=== PATIENT | female | born 1995 | race American Indian/Alaskan Native ===

== ENCOUNTER 2017-12-04 17:33 | Emergency (ER) | payer SELFPAY ==
[2017-12-04 20:06] LABS: Basophils % (Auto) 0.4 % (0.0-1.8); Eosinophils # (Auto) 0.2 K/mm3 (0.0-0.4); Eosinophils % (Auto) 1.7 % (0.0-4.3); Hematocrit 36.8 % (30.3-42.9); Hemoglobin 12.2 gm/dl (10.1-14.3); Lymphocytes # (Auto) 3.8 K/mm3 (1.2-5.4); Lymphocytes % (Auto) 28.9 % (13.4-35.0); Mean Corpuscular HGB Conc 33 % (30-34); Mean Corpuscular Hemoglobin 29 pg (28-32); Mean Corpuscular Volume 88 fl (79-97); Monocytes % (Auto) 7.8 % (0.0-7.3); Platelet Count 242 K/mm3 (140-440); Red Cell Distribution Width 15.9 % (13.2-15.2)
[2017-12-04 20:21] LABS: Alanine Aminotransferase 10 units/L (7-56); Albumin 4.1 g/dL (3.9-5); BUN/Creatinine Ratio 17; Blood Urea Nitrogen 10 mg/dL (7-17); Hemolysis Index 6
[2017-12-04 20:35] LABS: Bacteria,Urine 1+ /HPF (Negative); Bilirubin,Urine NEG (Negative); Blood,Urine LG (Negative); Color,Urine Yellow (Yellow); Mucus,Urine 3+ /HPF; Nitrite,Urine NEG (Negative); Protein,Urine <15 mg/dL mg/dL (Negative)
[2017-12-04 20:37] LABS: RBC,Urine > 182.0 /HPF (0.0-6.0)
[2017-12-04 20:38] LABS: HCG Qualitative,Urine Negative (Negative)
[2017-12-04] MEDS ORDERED: MOTRIN PO ONE (23:43)
[2017-12-04] MEDS ORDERED: NORCO 5/325 PO ONE (23:43)
--- NOTE | 2017-12-04 23:50 | Emergency Department Report ---
ED Back Pain/Injury HPI - General Chief Complaint: Abdominal Pain Stated Complaint: RIGHT SIDE PAIN Time Seen by Provider: 12/04/17 23:37 Source: patient Limitations: No Limitations - History of Present Illness Initial Comments: 22-year-old female with a past medical or surgical history presents complaining or right lower back and right flank pain 5 days. Pain is intermittent, sharp, worse on movement and palpation. Rated 6/10 in intensity. Patient works at a [employer] shop and so she has a physically active job. She denies nausea , vomiting, dysuria, or diaphoresis. She is currently on her menstrual cycle. - Related Data Previous Rx's Medication Instructions Recorded Last Taken Type Ibuprofen [Motrin] 800 mg PO Q8HR PRN #30 tablet 12/04/17 Unknown Rx traMADol [Ultram 50 MG tab] 50 mg PO Q6HR PRN #20 tablet 12/04/17 Unknown Rx Allergies Allergy/AdvReac Type Severity Reaction Status Date / Time No Known Allergies Allergy Unverified 12/04/17 17:44 ED Review of Systems ROS: Stated complaint: RIGHT SIDE PAIN Other details as noted in HPI Comment: All other systems reviewed and negative Other: Constitutional: No fevers chills Eyes: No eye pain visual changes ENT: No ear pain or throat pain Neck: Denies pain Respiratory: Denies cough wheezing shortness of breath Cardiovascular: Denies chest pain, palpitations, syncope GI: Denies abdominal pain, nausea, vomiting, diarrhea : Denies dysuria Musculoskeletal: as per hpi Skin: Denies rash, lesions, erythema Neurologic: Denies headache, numbness, weakness Psychiatric: Denies suicidal ideation, hallucinations ED Past Medical Hx - Past Medical History Previous Medical History?: No - Surgical History Past Surgical History?: No - Social History Smoking Status: Never Smoker Substance Use Type: None - Medications Home Medications: Home Medications Medication Instructions Recorded Confirmed Last Taken Type Ibuprofen [Motrin] 800 mg PO Q8HR PRN #30 tablet 12/04/17 Unknown Rx traMADol [Ultram 50 MG tab] 50 mg PO Q6HR PRN #20 tablet 12/04/17 Unknown Rx ED Physical Exam - General Limitations: No Limitations - Other Other exam information: General: No limitations, patient is alert in no acute distress Head exam: Atraumatic, normocephalic Eyes exam: Normal appearance, pupils equal reactive to light, extraocular movements intact ENT: Moist mucous membrane, normal oropharynx Neck exam: Normal inspection, full range of motion, no meningismus nontender Respiratory exam: Clear to auscultation bilateral, no wheezes, rales, crackles Cardiovascular: Normal rate and rhythm, normal heart sounds Abdomen: Soft, nondistended, and nontender, with normal bowel sounds, no rebound, or guarding Extremity: Full range of motion normal inspection no deformity Back: Normal Inspection, full range of motion, tenderness to right mid paraspinal muscles extending to right flank Neurologic: Alert, oriented x3, cranial nerves intact, no motor or sensory deficit Psychiatric: normal affect, normal mood Skin: Warm, dry, intact ED Course Vital Signs 12/04/17 12/04/17 12/04/17 17:41 23:32 23:46 Temperature 98.2 F Pulse Rate 67 Respiratory 16 Rate Blood Pressure 125/54 118/61 118/61 O2 Sat by Pulse 100 100 Oximetry 12/05/17 00:00 Temperature Pulse Rate Respiratory Rate Blood Pressure 118/61 O2 Sat by Pulse 98 Oximetry - Reevaluation(s) Reevaluation #1: 12/04/17 23:48 [place] and Motrin ordered for pain ED Medical Decision Making - Lab Data Result diagrams: 12/04/17 19:50 12/04/17 19:50 Lab Results 12/04/17 12/04/17 12/04/17 Range/Units 19:48 19:50 19:50 WBC 13.0 H (4.5-11.0) K/mm3 RBC 4.20 (3.65-5.03) M/mm3 Hgb 12.2 (10.1-14.3) gm/dl Hct 36.8 (30.3-42.9) % MCV 88 (79-97) fl MCH 29 (28-32) pg MCHC 33 (30-34) % RDW 15.9 H (13.2-15.2) % Plt Count 242 (140-440) K/mm3 Lymph % (Auto) 28.9 (13.4-35.0) % [place] % (Auto) 7.8 H (0.0-7.3) % Eos % (Auto) 1.7 (0.0-4.3) % Baso % (Auto) 0.4 (0.0-1.8) % Lymph # 3.8 (1.2-5.4) K/mm3 [place] # 1.0 H (0.0-0.8) K/mm3 Eos # 0.2 (0.0-0.4) K/mm3 Baso # 0.0 (0.0-0.1) K/mm3 Seg Neutrophils % 61.2 (40.0-70.0) % Seg Neutrophils # 8.0 H (1.8-7.7) K/mm3 Sodium 140 (137-145) mmol/L Potassium 3.7 (3.6-5.0) mmol/L Chloride 103.5 (98-107) mmol/L Carbon Dioxide 25 (22-30) mmol/L Anion Gap 15 mmol/L BUN 10 (7-17) mg/dL Creatinine 0.6 L (0.7-1.2) mg/dL Estimated GFR > 60 ml/min BUN/Creatinine Ratio 17 % Glucose 102 H (65-100) mg/dL Calcium 9.0 (8.4-10.2) mg/dL Total Bilirubin 0.20 (0.1-1.2) mg/dL AST 19 (5-40) units/L ALT 10 (7-56) units/L Alkaline Phosphatase 78 (35-129) units/L Total Protein 7.6 (6.3-8.2) g/dL Albumin 4.1 (3.9-5) g/dL Albumin/Globulin Ratio 1.2 % Urine Color Yellow (Yellow) Urine Turbidity Clear (Clear) Urine pH 5.0 (5.0-7.0) Ur Specific [place] 1.028 (1.003-1.030) Urine Protein <15 mg/dl (Negative) mg/dL Urine Glucose (UA) Neg (Negative) mg/dL Urine Ketones Tr (Negative) mg/dL Urine Blood Lg (Negative) Urine Nitrite Neg (Negative) Urine Bilirubin Neg (Negative) Urine Urobilinogen 2.0 (<2.0) mg/dL Ur Leukocyte Esterase Neg (Negative) Urine WBC (Auto) 3.0 (0.0-6.0) /HPF Urine RBC (Auto) > 182.0 (0.0-6.0) /HPF U Epithel Cells (Auto) < 1.0 (0-13.0) /HPF Urine Bacteria (Auto) 1+ (Negative) /HPF Urine Mucus 3+ /HPF Urine HCG, Qual Negative (Negative) - Medical Decision Making Patient has reproducible muscular pain on exam and lacks any nausea, vomiting, or dysuria to suggest alternative diagnosis such biliary or renal colic. No abdominal tenderness. Blood in urine likely secondary to menstrual cycle. 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 Patient be treated symptomatically and to return if symptoms worsen as indicated by her discharge instructions. - Differential Diagnosis UTI, muscle strain, renal colic, biliary colic Critical Care Time: No Critical care attestation.: If time is entered above; I have spent that time in minutes in the direct care of this critically ill patient, excluding procedure time. ED Disposition Clinical Impression: Flank strain Disposition: DC-01 TO HOME OR SELFCARE Is pt being admited?: No Does the pt Need Aspirin: No Condition: Stable Instructions: Low Back Strain (ED) Additional Instructions: Take the medication as prescribed. Return is symptoms worsen. Follow with the clinic provided Prescriptions: Ibuprofen [Motrin] 800 mg PO Q8HR PRN #30 tablet PRN Reason: Pain traMADol [Ultram 50 MG tab] 50 mg PO Q6HR PRN #20 tablet PRN Reason: Pain Referrals: [facility] [Provider Group] - 3-5 Days Forms: Work/School Release Form(ED)
[2017-12-05 00:20] VITALS: BP 144/72
== END 2017-12-05 00:32 | disposition home or self-care (01) ==
LOC: ED 17:33
DX: S39.011A Strain of muscle, fascia and tendon of abdomen, initial encounter (principal); X58.XXXA Exposure to other specified factors, initial encounter; Y93.89 Activity, other specified; Y92.89 Other specified places as the place of occurrence of the external cause; Y99.8 Other external cause status
CPT/HCPCS: 36415; 80053; 81001; 81025; 85025; 99283

== ENCOUNTER 2018-02-14 18:01 | Emergency (ER) | payer SELFPAY ==
[2018-02-14 18:21] VITALS: BP 126/60
[2018-02-14] MEDS ORDERED: DECADRON IM ONE (21:07)
[2018-02-14] MEDS ORDERED: BENADRYL PO ONE (21:07)
--- NOTE | 2018-02-14 21:10 | Emergency Department Report ---
ED Rash HPI - HPI Chief Complaint: Skin Rash Stated Complaint: INSECT BITES Time Seen by Provider: 02/14/18 21:00 Duration: Today Location: Head, Back, Lower Extremities Suspected Cause: Animal, Unknown Rash Symptoms: Yes Itching, No Facial Swelling, No Tongue/Oral Swelling, No Breathing Difficulties, No Choking Sensation, No Wheezing/Dyspnea, No Peeling, No Blistering, No Fever, No Lightheaded, No Malaise, No Myalgias Severity: moderate Other History: This is a 22-year-old female with no problem medical history presents ED complaining of red raised itchy bumps all over her arms and legs forehead neck and back times one day. Patient states she was at her friend's yesterday and spent the night over there and today she noticed all of this and her son has same symptoms. He states that her friend has a dog but otherwise at straight. Patient states she does not recall eating anything out of the ordinary ED Review of Systems ROS: Stated complaint: INSECT BITES Other details as noted in HPI Constitutional: denies: chills, fever Eyes: denies: eye pain, eye discharge, vision change ENT: denies: ear pain, throat pain Respiratory: denies: cough, shortness of breath, wheezing Cardiovascular: denies: chest pain, palpitations Endocrine: no symptoms reported Gastrointestinal: denies: abdominal pain, nausea, diarrhea Genitourinary: denies: urgency, dysuria, discharge Musculoskeletal: denies: back pain, joint swelling, arthralgia Skin: rash (forehead, neck,arms and legs), pruritus. denies: lesions Neurological: denies: headache, weakness, paresthesias Psychiatric: denies: anxiety, depression Hematological/Lymphatic: denies: easy bleeding, easy bruising ED Past Medical Hx - Past Medical History Hx Asthma: Yes - Surgical History Past Surgical History?: No - Social History Smoking Status: Never Smoker Substance Use Type: None - Medications Home Medications: Home Medications Medication Instructions Recorded Confirmed Last Taken Type traMADol [Ultram 50 MG tab] 50 mg PO Q6HR PRN #20 tablet 12/04/17 Unknown Rx Calamine/Zinc Oxide [Calamine 1 applic TP DAILY #1 lotion 02/14/18 Unknown Rx Lotion] Hydrocortisone 1% [Hydrocortisone 1 applicatio TP TID #1 tube 02/14/18 Unknown Rx 1% CREAM] Ibuprofen [Motrin 800 MG tab] 800 mg PO Q8HR PRN #30 tablet 02/14/18 Unknown Rx diphenhydrAMINE [Benadryl CAP] 25 mg PO BID #30 capsule 02/14/18 Unknown Rx Rash Exam - Exam General: Vital signs noted. No distress. Alert and acting appropriately. HEENT: No Periorbital Edema, No Conjuctival Injection, No Chemosis, No Perioral Edema, No Tongue Edema, No Uvular Edema, No Compromised Airway, No Drooling Lungs: Yes Good Air Exchange (Normal Breath Sounds), No Wheezes, No Ronchi, No Stridor, No Cough, No Labored Respirations, No Retractions, No Use of Accessory Muscles, No Other Abnormal Lung Sounds Heart: Yes Regular, No Murmur Skin: Yes Urticarial Rash, Yes Maculopapular Rash, Yes Erythema, No Morbilliform rash, No Bulla(e), No Excoriations, No Weeping, No Tenderness, No Edema, No Encrustations, No Other Other: Positive: Abdomen Normal, Neurologic Normal, Musculoskeletal Normal ED Course Vital Signs 02/14/18 18:19 Temperature 98.8 F Pulse Rate 74 Respiratory 16 Rate Blood Pressure 126/60 O2 Sat by Pulse 100 Oximetry ED Medical Decision Making - Medical Decision Making 22-year-old female presents with hives ED course: Patient receives 10 mg of Decadron Benadryl was not giving because 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 Discussed patient to wash them get creative clothes one at her friend's house yesterday. VS are normal patient is in no acute or respiratory distress Discussed to follow up with primary care physician. Critical care attestation.: If time is entered above; I have spent that time in minutes in the direct care of this critically ill patient, excluding procedure time. ED Disposition Clinical Impression: Urticaria Giant hives Qualifiers: Encounter type: initial encounter Qualified Code(s): T78.3XXA - Angioneurotic edema, initial encounter Insect bite Qualifiers: Encounter type: initial encounter Qualified Code(s): W57.XXXA - Bitten or stung by nonvenomous insect and other nonvenomous arthropods, initial encounter Disposition: TO HOME OR SELFCARE Is pt being admited?: No Does the pt Need Aspirin: No Condition: Stable Instructions: Urticaria (ED), Insect Bite or Sting (ED) Additional Instructions: Make sure to follow up with the primary care physician as discussed. Take all your medications as you've been prescribed. If you have any worsening symptoms or develop new symptoms please return to ED immediately. Prescriptions: Calamine/Zinc Oxide [Calamine Lotion] 1 applic TP DAILY #1 lotion diphenhydrAMINE [Benadryl CAP] 25 mg PO BID #30 capsule Hydrocortisone 1% [Hydrocortisone 1% CREAM] 1 applicatio TP TID #1 tube Ibuprofen [Motrin 800 MG tab] 800 mg PO Q8HR PRN #30 tablet PRN Reason: Pain Referrals: PRIMARY CARE, [Primary Care Provider] - 3-5 Days [facility] [address] [Outside] - 3-5 Days [facility] [Outside] - 3-5 Days [facility] [Outside] - 3-5 Days Forms: Work/School Release Form(ED) Time of Disposition: 21:38
== END 2018-02-14 22:00 | disposition home or self-care (01) ==
LOC: ED 18:01
DX: S00.86XA Insect bite (nonvenomous) of other part of head, initial encounter (principal); S10.96XA Insect bite of unspecified part of neck, initial encounter; S40.862A Insect bite (nonvenomous) of left upper arm, initial encounter; S40.861A Insect bite (nonvenomous) of right upper arm, initial encounter; S80.862A Insect bite (nonvenomous), left lower leg, initial encounter; S80.861A Insect bite (nonvenomous), right lower leg, initial encounter; T78.3XXA Angioneurotic edema, initial encounter; W57.XXXA Bitten or stung by nonvenomous insect and other nonvenomous arthropods, initial encounter; Y93.89 Activity, other specified; Y92.89 Other specified places as the place of occurrence of the external cause; Y99.8 Other external cause status
CPT/HCPCS: 96372; 99282; J1100